=== PATIENT | female | born 2000 | race Caucasian/White ===

== ENCOUNTER 2018-11-19 16:01 | Emergency (ER) | payer BC ==
[2018-11-19 16:13] VITALS: BP 150/101
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
== END 2018-11-19 16:40 | disposition home or self-care (01) ==
LOC: ED 16:01
DX: S09.90XA Unspecified injury of head, initial encounter (principal); W20.8XXA Other cause of strike by thrown, projected or falling object, initial encounter; Y92.9 Unspecified place or not applicable
CPT/HCPCS: 99281